=== PATIENT | female | born 2000 | race Caucasian/White ===

== ENCOUNTER → 2019-09-16 | Outpatient (CLI) | payer BC, OTHER ==
[~2019-09-16] MED LIST: BIRTH CONTROL; CEPH-507 PO; DESO1TAB72; ONDA4TAB11
--- NOTE | 2019-09-16 16:44 | Diagnostic Imaging Report ---
INDICATION: Assessment during normal . TECHNIQUE: Multiple real-time grayscale images were obtained over the gravid uterus. COMPARISON: None FINDINGS: A single viable intrauterine is currently in a breech presentation. Placenta is along the posterior aspect and without evidence for previa. There is a normal amount of amniotic fluid. Cervical length 3.6 cm. The ovaries are not able to be visualized likely owing to the advanced gestational age. Biometrical measurements are as follows: Biparietal 4.49 cm, age 19 weeks 5 days. Head circumference 17 cm, age 19 weeks 5 days. Abdominal circumference 13.57 cm, age 19 weeks 1 days. Femur length 2.81 cm, age 18 weeks 5 days. Sonographic estimate age: 19 weeks 3 days. Sonographic estimated date of delivery: 02/07/2020. Estimated Weight: 265 gm (+/- 39 gm). LMP percentile: 33%. heart rate: 161 beats per minute. number: 1 of 1. IMPRESSION: 1. Single viable intrauterine currently in a breech presentation. Sonographic estimated age 19 weeks 3 days for estimated date of delivery 02/07/2020. No abnormalities demonstrate at this time. Dictated by: Dictated on workstation # [id number]
== END ==
LOC: RAD 15:04
PROVIDERS: ATTEND Nurse Practitioner Women's Health
DX: Z34.92 Encounter for supervision of normal pregnancy, unspecified, second trimester (principal); Z3A.19 19 weeks gestation of pregnancy
CPT/HCPCS: 76805

== ENCOUNTER → 2019-12-17 | Outpatient (CLI) | payer OTHER ==
[~2019-12-17] MED LIST changes: -DESO1TAB72; +DESO1TAB89
--- NOTE | 2019-12-17 16:31 | Diagnostic Imaging Report ---
INDICATION: Evaluate growth. TECHNIQUE: Multiple real-time grayscale images were obtained over the gravid uterus. COMPARISON: 09/16/2019. FINDINGS: There is a single live fetus in a cephalic presentation. heart rate was recorded at 156 bpm. Placenta is posterior. Amniotic fluid index is 9.8 cm. Biophysical profile was also performed. Biophysical profile score is normal at 8 out of 8. Biometrical measurements are as follows: Biparietal 8.17 cm, age 32 weeks 6 days. Head circumference 28.95 cm, age 32 weeks 0 days. Abdominal circumference 27.84 cm, age 32 weeks 0 days. Femur length 5.90 cm, age 30 weeks 6 days. Sonographic estimate age: 32 weeks 0 days. Sonographic estimated date of delivery: 02/11/2020. Estimated Weight: 1806 gm (+/- 264 gm). LMP percentile: 21%. heart rate: 156 beats per minute. number: 1 of 1. IMPRESSION: 1. Single live fetus 32 weeks gestational age showing normal interval growth when compared with prior exam. 2. Normal biophysical profile score of 8 out of 8. Dictated by: Dictated on workstation # [id number]
== END ==
LOC: RAD 15:21
PROVIDERS: ATTEND Obstetrics & Gynecology
DX: O26.843 Uterine size-date discrepancy, third trimester (principal); Z3A.32 32 weeks gestation of pregnancy
CPT/HCPCS: 76805; 76819

== ENCOUNTER 2020-02-14 03:14 | Inpatient (IN) | payer OTHER ==
[2020-02-14] VITALS (36 sets, daily range): BP systolic 113–145; BP diastolic 58–90
[~2020-02-14] VITALS: Ht 160 cm; Wt 83.5 kg
--- NOTE | 2020-02-14 08:10 | NUR ---
EDSON PENNINGTON presented to unit via ambulation, accompanied by s/o , for scheduled IOL. Pt. weighed, gowned, voided, and to bed. EFHM and TOCO applied, VS taken. Pt. oriented to bed controls, call light, TV, heat, and A/C controls.
--- OUTSIDE RECORDS SUMMARY | 2020-02-14 08:16 | XMS REPORT ---
Author Author [employer] [facility] [place] [employer]. [facility] Address [address] [address] Care Team Providers Care Senior Facilities Manager Name Role Phone GELY YATES Unavailable MEENAKSHI MOE APRN Unavailable Unavailable NIMA WAY, PAULINE Curran Unavailable Unavailable ROSI MUÑOZ APRN Unavailable Unavailable ALEJO GARCIAS DO Unavailable Unavailable Unavailable Unavailable Allergies The data below is from unstructured sourcesNo known allergies. Medications No Information Problems Problem Normalized Date Last Normalized Normalized Provider Fa cility Classification Problem(s) Recorded Problem Problem Sta tus Duration Residual 19 weeks Episodic Active ROSI MUÑOZ [facility] Via codes; gestation of , YAN [facility] unclassified Hospital - (2 sources.) [place] ([id number]) Residual 32 weeks 02-13-2020 - Episodic Active ALEJO GARCIAS [facility] Via codes; gestation of DO Silva unclassified Hospital - (8 sources.) [place] ([id number]) Other Encounter for Episodic Active ROSI MUÑOZ [facility] Via and supervision of YAN delivery normal Hospital - including , [place] normal (2 unspecified, ([id number]) sources.) second trimester Fever of Fever, 02-13-2020 - Episodic Active MEENAKSHI MOE [facility] Via unknown origin unspecified YAN [facility] (4 sources.) Hospital - [place] ([id number]) Fluid and Hypokalemia 02-13-2020 - Episodic Active PAULINE [facility] Via electrolyte Shira HERRING disorders (4 Hospital - sources.) [place] ([id number]) Viral Infectious 02-13-2020 - Episodic Active PAULINE [facility] Via infection (4 mononucleosis, Shira HERRING sources.) unspecified [facility] - without [place] complication ([id number]) Other liver Nonspecific 02-13-2020 - Episodic Active PAULINE [facility] Via diseases (4 elevation of Shira HERRING sources.) levels of [facility] - [facility] and lactic (17157) acid dehydrogenase [LDH] Other Uterine 02-13-2020 - Episodic Active ALEJO GARCIAS [facility] Via complications size-date DO Shira of discrepancy, Hospital - (8 sources.) third [place] trimester ([id number]) Procedures The data below is from unstructured sourcesNo known history of procedures. Immunizations The data below is from unstructured sourcesNo immunization records. Results No Information Vital Signs The data below is from unstructured sources Vital Response Date/Time Temperature (Fahrenheit) 97.8 degree s F (97.6 - 99.5) 05/03/2016 3:47pm Temperature (Calculated Celsius) 36. 11505 degrees C (36.4 - 37.5) 05/03/2016 3:47pm Temperature Source Tympanic 05/03/2016 3:47pm Pulse Rate (Adolescent 12-19yrs) 86 bpm (56 - 106) 05/03/2016 3:47pm Respiratory Rate (Adolescent 12-19yrs) 18 bpm (15 - 20) 05/03/2016 3:47pm Blood Pressure / Blood Pressure Systolic (Adolescent 12-19yrs) 116 mm Hg (115 - 120) 05/03/2016 3:47pm Pain Numeric Pain Scale 7 6:34pm Height (Feet) 5 feet 3:47pm Height (Inches) 5 inches 05/03/2016 3:47pm Height (Calculated Centimeters) 165. 759285 cm 05/03/2016 3:47pm Weight (Pounds) 128 pounds 05/03/2016 3:47pm Weight (Calculated Kilograms) 58.059 824 kilograms 05/03/2016 3:47pm Calculated BMI 21.30 3:47pm Interventions No Information Plan of Treatment The data below is from unstructured sources Discharge Date 05/03/16 6:44pm Disposition 01 HOME, SELF-CARE Condition at Discharge Improved Instructions/Education Provided Safe Sex (ED) Mononucleosis (ED) Urinary Tract Infection in Women (ED) Forms Provided School/Childcare Rele ase Prescriptions See Medication Section Referrals GELY YATES MD - Primary Care Physician Additional Instructions/Education Fo llow-up with your primary care provider later this week. Review urine culture to ensure your antibiotic treatment is appropriate. Avoid any activity that can cause abdominal trauma. Stay out of school if you have temperature greater than 100. Follow-up with your primary care demarco polo or women's health provider for the final vaginal culture results in about 4 or 5 days. You may take ibuprofen up to 600 mg every 6 hours as needed for pain. Avoid Tylenol (acetaminophen) products until cleared by your doctor. Complete the entire course of your antibiotics as prescribed. Nothing vaginally including intercourse and tampons until cleared by your physician. All discharge instructions reviewed with patient and/or family. Voiced understanding. Goals No Information Social History No Information Functional Status The data below is from unstructured sourcesNo functional status results. Mental Status No Information Encounters Encounter Normalized Encounter Encounter Diagnosis Care Provi josep Organization Date Type 05-03-2016 Emergency department no information PAULINE MATUTE [facility] Via Shira - patient visit (no phone) [facility] 05-03-2016 (no phone) 12-17-2019 Patient encounter no information ALEJO GARCIAS DO ( no [facility] Via Shira procedure phone) [facility] (no phone) 09-16-2019 Patient encounter no information ROSI MANCINI [facility] Via Shira procedure (no phone) [facility] (no phone) 05-02-2016 Patient encounter no information MEENAKSHI MOE APRN (no [facility] Via Shira procedure phone) [facility] (no phone) Medical Equipment No Information Payers No Information Discharge Instructions No hospital discharge instructions. Additional Source Comments This clinical document has been generated using [employer] software that has been certified by the Office of the National Coordinator for Health Information Technology (ONC 15.99.04.3023.[id number].[id number]) and the National Committee for Deaf Teacher (NCQA, as an eMeasure certified technology). FOR RECORDS PERTAINING TO PATIENTS WHO ARE OR HAVE BEEN ENROLLED IN A CHEMICAL D EPENDENCY/SUBSTANCE ABUSE PROGRAM, SOME INFORMATION MAY BE OMITTED. This clinica l summary was aggregated from multiple sources. Caution should be exercised in using it in the provision of clinical care. This summary normalizes information from multiple sources, and as a consequence, information in this document may ma terially change the coding, format and clinical context of patient data. In francine tion, data may be omitted in some cases. CLINICAL DECISIONS SHOULD BE BASED ON T HE PRIMARY CLINICAL RECORDS. [facility]. provides no warranty or guara ntee of the accuracy or completeness of information in this document.The followi ng information is based on time limited clinical information
--- OUTSIDE RECORDS SUMMARY | 2020-02-14 08:16 | XMS REPORT | Continuity of Care Document ---
Author Organization Unknown Address Unknown Phone Unavailable Allergies Active Description Code Type Severity Reaction Onset Reported/Identified Relationship to Patient Clinical Status Yes No Known Drug Allergies [id number] Drug Allergy Unknown N/A 05/03/2016 Medications There is no data. Problems Date Dx Coded Attending Type Code Diagnosis Diagnosed By 05/03/[address], PAULINE T Ot B27.90 INFECTIOUS MONONUCLEOSIS, UNSPECIFIED WI 05/03/[address], PAULINE T Ot E87.6 HYPOKALEMIA 05/03/[address], PAULINE T Ot N39.0 URINARY TRACT INFECTION, SITE NOT SPECIF 05/03/[address], PAULINE T Ot R10.11 RIGHT UPPER QUADRANT PAIN 05/03/[address], PAULINE T Ot R74.0 NONSPEC ELEV OF LEVELS OF TRANSAMNS LA 05/24/2016 MEENAKSHI MOE BEADING MACHINE OPERATOR Ot R10.31 RIGHT LOWER QUADRANT PAIN 05/24/2016 MEENAKSHI MOE BEADING MACHINE OPERATOR Ot R50 .9 FEVER, UNSPECIFIED 09/11/2019 MUKUND MOEI L BEADING MACHINE OPERATOR Ot R10.31 RIGHT LOWER QUADRANT PAIN 09/11/2019 MUKUND MOEI L BEADING MACHINE OPERATOR Ot R50 .9 FEVER, UNSPECIFIED 09/16/2019 MUKUND MOEI Amina BEADING MACHINE OPERATOR Ot R10.31 RIGHT LOWER QUADRANT PAIN 09/16/2019 MUKUND MOEI L BEADING MACHINE OPERATOR Ot R50 .9 FEVER, UNSPECIFIED 09/18/2019 ROSI MUÑOZ BEADING MACHINE OPERATOR Ot Z34.92 ENCNTR FOR SUPRVSN OF NORMAL PREG, UNSP, 09/18/2019 ROSI MUÑOZ BEADING MACHINE OPERATOR Ot Z3A.19 19 WEEKS GESTATION OF 12/18/2019 MEENAKSHI MOE BEADING MACHINE OPERATOR Ot R10.31 RIGHT LOWER QUADRANT PAIN 12/18/2019 MEENAKSHI MOE BEADING MACHINE OPERATOR Ot R50 .9 FEVER, UNSPECIFIED 12/18/2019 ROSI MUÑOZ BEADING MACHINE OPERATOR Ot Z34.92 ENCNTR FOR SUPRVSN OF NORMAL PREG, UNSP, 12/18/2019 ROSI MUÑOZ BEADING MACHINE OPERATOR Ot Z3A.19 19 WEEKS GESTATION OF 12/18/2019 GARCIAS DO, ALEJO C Ot O26.8 43 UTERINE SIZE-DATE DISCREPANCY, THIRD TRI 12/18/2019 GARCIAS DO, ALEJO C Ot Z3A.3 2 32 WEEKS GESTATION OF 12/24/2019 GARCIAS DO, ALEJO C Ot O26.8 43 UTERINE SIZE-DATE DISCREPANCY, THIRD TRI 12/24/2019 GARCIAS DO, ALEJO C Ot Z3A.3 2 32 WEEKS GESTATION OF 12/24/2019 GARCIAS DO, ALEJO C Ot O26.8 43 UTERINE SIZE-DATE DISCREPANCY, THIRD TRI 12/24/2019 GARCIAS DO, ALEJO C Ot Z3A.3 2 32 WEEKS GESTATION OF 12/24/2019 GARCIAS DO, ALEJO C Ot O26.8 43 UTERINE SIZE-DATE DISCREPANCY, THIRD TRI 12/24/2019 GARCIAS DO, ALEJO C Ot Z3A.3 2 32 WEEKS GESTATION OF 12/24/2019 GARCIAS DO, ALEJO C Ot O26.8 43 UTERINE SIZE-DATE DISCREPANCY, THIRD TRI 12/24/2019 GARCIAS DO, ALEJO C Ot Z3A.3 2 32 WEEKS GESTATION OF 01/01/2020 GARCIAS DO, ALEJO C Ot O26.8 43 UTERINE SIZE-DATE DISCREPANCY, THIRD TRI 01/01/2020 GARCIAS DO, ALEJO C Ot Z3A.3 2 32 WEEKS GESTATION OF Procedures There is no data. Results Test Result Range Complete blood count (CBC) with automate d white blood cell (WBC) differential - 05/02/16 17:10 Blood leukocytes automated count (number/volume) 8.0 10*3/uL 4.3-11.0 Blood erythrocytes automated count (number/volume) 3.92 10*6/uL 4.35-5.85 Venous blood hemoglobin measurement (mass/volume) 11.4 g/dL 11.5-16.0 Blood hematocrit (volume fraction) 34 % 35-52 Automated erythrocyte mean corpuscular volume 86 [ foz_us] 80-99 Automated erythrocyte mean corpuscular h emoglobin (mass per erythrocyte) 29 pg 25-34 Automated erythrocyte mean corpuscular h emoglobin concentration measurement (mass/volume) 34 g/dL 32-36 Automated erythrocyte distribution width ratio 13. 1 % 10.0- 14.5 Automated blood platelet count (count/volume) 190 10*3/uL 130-400 Automated blood platelet mean volume measurement 11.3 [foz_us] 7.4-10.4 Automated blood neutrophils/100 leukocytes 16 % 42-75 Automated blood lymphocytes/100 leukocytes 66 % 12-44 Blood monocytes/100 leukocytes 14 % 0-12 Automated blood eosinophils/100 leukocytes 0 % 0-10 Automated blood basophils/100 leukocytes 4 % 0-10 Blood neutrophils automated count (number/volume) 1.3 10*3 1.8-7.8 Blood lymphocytes automated count (number/volume) 5.2 10*3 1.0-4.0 Blood monocytes automated count (number/volume) 1. 1 10*3 0.0-1.0 Automated eosinophil count 0.0 10*3/uL 0 .0-0.3 Automated blood basophil count (count/volume) 0.3 10*3/uL 0.0-0.1 Comprehensive metabolic panel - 05/02/16 17:10 Serum or plasma sodium measurement (moles/volume) 139 mmol/L 135-145 Serum or plasma potassium measurement (moles/volume) 3.6 mmol/L 3.6-5.0 Serum or plasma chloride measurement (moles/volume) 102 mmol/L 98-107 Carbon dioxide 27 mmol/L 21-32 Serum or plasma anion gap determination (moles/volume) 10 mmol/L 5-14 Serum or plasma urea nitrogen measurement (mass/volume ) 9 mg/dL 7-18 Serum or plasma creatinine measurement (mass/volume) 0.71 mg/dL 0.60-1.30 Serum or plasma urea nitrogen/creatinine mass ratio 13 NRG Serum or plasma glucose measurement (mass/volume) 93 mg/dL 70-105 Serum or plasma calcium measurement (mass/volume) 9.1 mg/dL 8.5-10.1 Serum or plasma total bilirubin measurement (mass/volu me) 0.9 mg/dL 0.1-1.0 Serum or plasma alkaline phosphatase diana surement (enzymatic activity/volume) 218 U/L 60-350 Serum or plasma aspartate aminotransfera se measurement (enzymatic activity/volume) 144 U/L 5-34 Serum or plasma alanine aminotransferase measurement (enzymatic activity/volume) 165 U/L 0-55 Serum or plasma protein measurement (mass/volume) 7.1 g/dL 6.4-8.2 Serum or plasma albumin measurement (mass/volume) 3.8 g/dL 3.2-4.5 Serum or plasma C reactive protein measu rement (mass/volume) - 05/02/16 17:10 Serum or plasma C reactive protein measurement (mass/v olume) 2.19 mg/dL 0.00-0.50 Blood manual differential performed dete ction - 05/02/16 17:10 Blood monocytes/100 leukocytes 0 % NRG Manual blood segmented neutrophils/100 leukocytes 23 % NRG Blood band neutrophils/100 leukocytes 3 % NRG Manual blood lymphocytes/100 leukocytes 66 % NRG Manual eosinophils/100 leukocytes in nose 0 % NRG Manual blood basophils/100 leukocytes 0 % NRG Blood lymphocytes variant/100 leukocytes 8 % NRG Blood erythrocyte morphology finding identification NORMAL NRG Serum heterophile antibody titer - 05/02 17:10 Serum heterophile antibody titer NEGATIVE NEGATIVE Complete urinalysis with reflex to cultu re - 05/03/16 15:55 Urine color determination YELLOW NRG Urine clarity determination SLIGHTLY CLOUDY NRG Urine pH measurement by test strip 6 5-9 Specific gravity of urine by test strip 1.020 1.016-1.022 Urine protein assay by test strip, semi-quantitative 2+ NEGATIVE Urine glucose detection by automated test strip NE GATIVE NEGATIVE Erythrocytes detection in urine sediment by light micr oscopy NEGATIVE NEGATIVE Urine ketones detection by automated test strip 4+ NEGATIVE Urine nitrite detection by test strip NEGATIVE NEGATIVE Urine total bilirubin detection by test strip 1+ NEGATIVE Urine urobilinogen measurement by automated test strip (mass/volume) 8 mg/dL NORMAL Urine leukocyte esterase detection by dipstick 1+ NEGATIVE Automated urine sediment erythrocyte cou nt by microscopy (number/high power field) NONE NRG Automated urine sediment leukocyte count by microscopy (number/high power field) [HPF] NRG Bacteria detection in urine sediment by light microsco py FEW NRG Squamous epithelial cells detection in u rine sediment by light microscopy 5-10 NRG Crystals detection in urine sediment by light microsco py NONE NRG Casts detection in urine sediment by light microscopy NONE NRG Mucus detection in urine sediment by light microscopy SMALL NRG Complete urinalysis with reflex to culture YES NRG Bacterial urine culture - 05/03/16 15:55 URINE CULTURE RESULTS <10,000/ML NRG Complete blood count (CBC) with automate d white blood cell (WBC) differential - 05/03/16 16:53 Blood leukocytes automated count (number/volume) 5.8 10*3/uL 4.3-11.0 Blood erythrocytes automated count (number/volume) 4.17 10*6/uL 4.35-5.85 Venous blood hemoglobin measurement (mass/volume) 12.1 g/dL 11.5-16.0 Blood hematocrit (volume fraction) 36 % 35-52 Automated erythrocyte mean corpuscular volume 85 [ foz_us] 80-99 Automated erythrocyte mean corpuscular h emoglobin (mass per erythrocyte) 29 pg 25-34 Automated erythrocyte mean corpuscular h emoglobin concentration measurement (mass/volume) 34 g/dL 32-36 Automated erythrocyte distribution width ratio 13. 4 % 10.0- 14.5 Automated blood platelet count (count/volume) 196 10*3/uL 130-400 Automated blood platelet mean volume measurement 11.3 [foz_us] 7.4-10.4 Automated blood neutrophils/100 leukocytes 13 % 42-75 Automated blood lymphocytes/100 leukocytes 68 % 12-44 Blood monocytes/100 leukocytes 14 % 0-12 Automated blood eosinophils/100 leukocytes 1 % 0-10 Automated blood basophils/100 leukocytes 4 % 0-10 Blood neutrophils automated count (number/volume) 0.8 10*3 1.8-7.8 Blood lymphocytes automated count (number/volume) 3.9 10*3 1.0-4.0 Blood monocytes automated count (number/volume) 0. 8 10*3 0.0-1.0 Automated eosinophil count 0.0 10*3/uL 0 .0-0.3 Automated blood basophil count (count/volume) 0.2 10*3/uL 0.0-0.1 Serum heterophile antibody titer - 05/03 16:53 Serum heterophile antibody titer POSITIVE NEGATIVE Serum or plasma choriogonadotropin (preg bola test) detection - 05/03/16 16:53 Serum or plasma choriogonadotropin ( test) de tection NEGATIVE NEGATIVE Comprehensive metabolic panel - 05/03/16 16:53 Serum or plasma sodium measurement (moles/volume) 137 mmol/L 135-145 Serum or plasma potassium measurement (moles/volume) 3.6 mmol/L 3.6-5.0 Serum or plasma chloride measurement (moles/volume) 101 mmol/L 98-107 Carbon dioxide 23 mmol/L 21-32 Serum or plasma anion gap determination (moles/volume) 13 mmol/L 5-14 Serum or plasma urea nitrogen measurement (mass/volume ) 10 mg/dL 7-18 Serum or plasma creatinine measurement (mass/volume) 0.70 mg/dL 0.60-1.30 Serum or plasma urea nitrogen/creatinine mass ratio 14 NRG Serum or plasma glucose measurement (mass/volume) 74 mg/dL 70-105 Serum or plasma calcium measurement (mass/volume) 9.2 mg/dL 8.5-10.1 Serum or plasma total bilirubin measurement (mass/volu me) 1.0 mg/dL 0.1-1.0 Serum or plasma alkaline phosphatase diana surement (enzymatic activity/volume) 222 U/L 60-350 Serum or plasma aspartate aminotransfera se measurement (enzymatic activity/volume) 161 U/L 5-34 Serum or plasma alanine aminotransferase measurement (enzymatic activity/volume) 199 U/L 0-55 Serum or plasma protein measurement (mass/volume) 7.5 g/dL 6.4-8.2 Serum or plasma albumin measurement (mass/volume) 4.0 g/dL 3.2-4.5 Serum or plasma C reactive protein measu rement (mass/volume) - 05/03/16 16:53 Serum or plasma C reactive protein measurement (mass/v olume) 1.58 mg/dL 0.00-0.50 Blood manual differential performed dete ction - 05/03/16 16:53 Blood monocytes/100 leukocytes 0 % NRG Manual blood segmented neutrophils/100 leukocytes 24 % NRG Blood band neutrophils/100 leukocytes 6 % NRG Manual blood lymphocytes/100 leukocytes 58 % NRG Manual eosinophils/100 leukocytes in nose 1 % NRG Manual blood basophils/100 leukocytes 0 % NRG Blood lymphocytes variant/100 leukocytes 11 % NRG Blood erythrocyte morphology finding identification NORMAL NRG Bacteria identification in genital speci men by aerobe culture - 05/03/16 17:35 Bacteria identification in genital specimen by aerobe culture NORMAL NRG Microscopic examination by ELIZABETH preparati on - 05/03/16 17:35 Microscopic examination by ELIZABETH preparation TNP NRG Microscopic examination by wet preparati on - 05/03/16 17:35 WET PREP RESULTS 05/03 18:17 BY P MAGDA NRG Neisseria gonorrhoeae DNA detection by p robe and signal amplification method - 05/03/16 17:35 Gonorrhea amp DNA-urine Negative Negati ve Chlamydia trachomatis DNA detection by p robe and signal amplification method - 05/03/16 17:35 Chlamydia trachomatis DNA detection by p robe and target amplification method Negative Negative Encounters ACCT No. Visit Date/Time Discharge Status Pt. Type Provider Facility Loc./Unit Complaint [id number] 12/17/2019 15:21:00 23:59:59 CLS Outpatient ALEJO GARCIAS DO [facility] RAD FUNDAL HEIGHTS LOW IN T HIRD TRIMESTER [id number] 09/16/2019 15:04:00 23:59:59 CLS Outpatient ROSI MUÑOZ APRN [facility] RAD [id number] 05/03/2016 15:39:00 016 18:44:[address]IMA [address], PAULINE Curran [facility] ER STOMACH PAIN [id number] 05/02/2016 17:01:00 23:59:59 CLS Outpatient MEENAKSHI MOE APRN [facility] RAD RLQ PAIN,FEVER/CHILLS
--- NOTE | 2020-02-14 08:25 | NUR ---
#20g IV to Rt.wrist x1 attempt by this RN. site patent, secured with opsite. admission labs collected from site prior to IVF's infusing. see eMar for further.
--- NOTE | 2020-02-14 08:32 | NUR ---
here. monitor tracing reviewed. admission orders received. POC reviewed with pt.
[2020-02-14] MEDS ORDERED: D5 LR IV SOLUTION 1,000 ML IV ONE (08:36)
[2020-02-14] MEDS ORDERED: D5 LR IV SOLUTION 1,000 ML IV SCH (08:58)
[2020-02-14] MEDS ORDERED: MINERAL OIL CONCENTRATE 99.9% 15 ML UDC TOP SCH (09:00)
[2020-02-14 09:05] LABS: BILIRUBIN,URINE NEGATIVE (NEGATIVE); CLARITY,URINE CLEAR; COLOR,URINE YELLOW; GLUCOSE, URINE (UA) NEGATIVE (NEGATIVE); KETONES,URINE NEGATIVE (NEGATIVE); LEUKOCYTE ESTERASE ,URINE NEGATIVE (NEGATIVE); NITRITE,URINE NEGATIVE (NEGATIVE); PROTEIN,URINE TRACE (NEGATIVE)
[2020-02-14 09:05] LABS: BASOPHILS % (AUTO) 0 % (0-10); EOSINOPHILS % (AUTO) 1 % (0-10); HEMATOCRIT 36 % (35-52); LYMPHOCYTES # (AUTO) 1.7 X 10^3 (1.0-4.0); LYMPHOCYTES % (AUTO) 22 % (12-44); MEAN CORPUSCULAR HEMOGLOBIN 30 PG (25-34); MEAN CORPUSCULAR HGB CONC 33 G/DL (32-36); MEAN CORPUSCULAR VOLUME 90 FL (80-99); MEAN PLATELET VOLUME 12.6 FL (7.4-10.4); MONOCYTES # (AUTO) 0.5 X 10^3 (0.0-1.0); MONOCYTES % (AUTO) 6 % (0-12); NEUTROPHILS # (AUTO) 5.6 X 10^3 (1.8-7.8); NEUTROPHILS % (AUTO) 71 % (42-75); PLATELET COUNT 236 10^3/uL (130-400); WHITE BLOOD COUNT 7.8 10^3/uL (4.3-11.0)
[2020-02-14 09:21] LABS: BACTERIA,URINE FEW /HPF
--- NOTE | 2020-02-14 09:45 | NUR ---
anesthesia notified of pt's request for epidural placement
[2020-02-14] MEDS ORDERED: fentaNYL 2 mcg/ml BUPIVA 0.125 100 ML ONE (09:51)
[2020-02-14] MEDS ORDERED: LACTATED RINGERS 1,000 ML IV SCH (10:20)
[2020-02-14] MEDS ORDERED: diphenhydrAMINE 50 MG/ML INJ (BENADRYL) IV PRN (10:30)
[2020-02-14] MEDS ORDERED: EPIDURAL (fentaNYL 2 MCG/ML BUPIVA 0.125%)100 ML BAG EPI SCH (10:30)
[2020-02-14] MEDS ORDERED: ONDANSETRON 4 MG/2 ML (SDV) Z0FRAN IV PRN (10:30)
[2020-02-14] MEDS ORDERED: NALOXONE 0.4 MG/ML 1 ML (NARCAN) VIAL IV PRN ×2 (10:30)
[2020-02-14] MEDS ORDERED: METOCLOPRAMIDE INJ 10 MG/2 ML (REGLAN) IV PRN (10:30)
--- NOTE | 2020-02-14 10:50 | NUR ---
Mike Barry was given update on pt's status. reviewed SVE and monitor tracing. pitocin order received.
[2020-02-14] MEDS ORDERED: OXYTOCIN PRE-MIX DRIP 500 ML IV SCH ×2 (10:51→17:57)
[2020-02-14] MEDS ORDERED: CATHETER FLUSH 10 ML SYR IV SCH (14:00)
--- NOTE | 2020-02-14 16:40 | OB Labor & Delivery Record ---
Vag Delivery Note Vag Delivery Note Date of Delivery: 02/14/20 Preoperative Diagnosis: Angelica Cheatham is a 19 /Para 1/0 , Gestational Age 40 5/7 weeks, induction due to post dated Postoperative Diagnosis: Same Surgeon: ALEJO GARCIAS Anesthesia: epidural Delivery Type: vaginal Findings: [] Viablemale , apgars 8/9, weight [7#14 ounces Lacerations: 2nd degree Intact placenta with 3 vessel cord. Nuchal cord delivered through, no body cord or shoulder dystocia Estimated Blood Loss: 300 ml Complications: None Condition: Stable Description of Procedure: The patient is a 19 year old female who presented at 40 5/7 weeks for induction of labor due to post dates. She was admitted and informed consent was obtained. Her labor course was remarkable for AROM, epidural and then augmentation with oxytocin. She progressed to complete dilatation and began to push. She was then set up for delivery. The infant's head was delivered atraumatically in the Samia position, nuchal cord x 1 delivered through. The shoulders and remainder of the 's body were then delivered without difficulty. Upon delivery, the head was held below the level of the perineum and the mouth and nares were bulb suctioned. The cord was doubly clamped and cut and the infant wa s handed off to the pediatric staff. An intact placenta with 3-vessel cord delivered via Jigar and there was found to be minimal bleeding.~ Vigorous fundal massage was performed and the fundus was found to be firm. IV oxytocin was given. Examination of the vagina and perineum revealed a [2nd degree laceration repaired in the usual fashion with 3-0 vicryl suture. Following the repair, sponge, instrument and needle counts were correct. Mom and baby were both in stable condition in the labor suite. Vitals - Labs Vital Signs - I&O Vital Signs Date Time Temp Pulse Resp B/P (MAP) Pulse Ox O2 Delivery O2 Flow Rate FiO2 02/14/20 14:30 73 18 119/77 (91) 99 Room Air 02/14/20 14:15 76 18 120/76 (91) 99 Room Air 02/14/20 14:00 80 18 115/76 (89) 99 Room Air 02/14/20 13:45 95 18 119/74 (89) 99 Room Air 02/14/20 13:30 87 18 99 Room Air 02/14/20 13:15 79 18 100 Room Air 02/14/20 13:00 63 18 123/71 (88) 99 Room Air 02/14/20 12:45 80 18 133/90 (104) 99 Room Air 02/14/20 12:30 80 18 133/90 (104) 99 Room Air 02/14/20 12:15 64 18 125/76 (92) 98 Room Air 02/14/20 12:00 71 18 118/81 (93) 99 Room Air 02/14/20 11:57 36.6 02/14/20 11:45 78 18 118/60 (79) 97 Room Air 02/14/20 11:30 78 18 118/60 (79) 97 Room Air 02/14/20 11:15 73 18 126/88 (101) 99 Room Air 02/14/20 11:00 76 18 115/77 (90) 99 Room Air 02/14/20 10:45 76 18 119/77 (91) 98 Room Air 02/14/20 10:30 76 18 120/76 (91) 99 Room Air 02/14/20 10:25 82 18 122/77 (92) 98 Room Air 02/14/20 10:20 88 18 127/79 (95) 99 Room Air 02/14/20 10:15 87 18 129/82 (98) 98 Room Air 02/14/20 10:10 90 18 129/84 (99) 98 Room Air 02/14/20 10:05 92 18 145/85 (105) 98 Room Air 02/14/20 10:00 87 18 129/83 (98) 98 Room Air 02/14/20 09:25 88 18 113/86 (95) Room Air 02/14/20 08:19 36.0 101 18 99 Room Air 02/14/20 08:19 36.0 101 18 117/78 (91) Room Air Labs Laboratory Tests 02/14/20 08:30: Urine Color YELLOW, Urine Clarity CLEAR, Urine pH 6.0, Urine Specific [place] >=1.030, Urine Protein TRACEH, Urine Glucose (UA) NEGATIVE, Urine Ketones NEGATIVE, Urine Nitrite NEGATIVE, Urine Bilirubin NEGATIVE, Urine Urobilinogen 0.2, Urine Leukocyte Esterase NEGATIVE, Urine RBC (Auto) NEGATIVE, Urine RBC NONE, Urine WBC 2-5, Urine Squamous Epithelial Cells 2-5, Urine Crystals NONE, Urine Bacteria FEWH, Urine Casts NONE, Urine Mucus SMALLH, Urine Culture I ndicated NO 02/14/20 08:32: White Blood Count 7.8, Red Blood Count 4.01L, Hemoglobin 12.0, Hematocrit 36, Mean Corpuscular Volume 90, Mean Corpuscular Hemoglobin 30, Mean Corpuscular Hemoglobin Concent 33, Red Cell Distribution Width 14.0, Platelet Count 236, Mean Platelet Volume 12.6H, Neutrophils (%) (Auto) 71, Lymphocytes (%) (Auto) 22, Monocytes (%) (Auto) 6, Eosinophils (%) (Auto) 1, Basophils (%) (Auto) 0, Neutrophils # (Auto) 5.6, Lymphocytes # (Auto) 1.7, Monocytes # (Auto) 0.5, Eosinophils # (Auto) 0.0, Basophils # (Auto) 0.0 ALEJO GARCIAS DO Feb 14, 2020 16:40
[2020-02-14] MEDS ORDERED: BENZOCAINE/MENTHOL (DERMOPLAST) 60 ML CAN TP PRN (18:00)
[2020-02-14] MEDS ORDERED: WITCH HAZEL(TUCKS) 40 EA JAR TOP PRN (18:00)
--- NOTE | 2020-02-14 18:52 | NUR ---
FFu/0. lt rubra noted, no clots expressed. omega-care offered. up with assist x1 to w/c
--- NOTE | 2020-02-14 18:55 | NUR ---
pt transferred to room 312 via w/c with this RN and s/o @ side. call light within reach. familiarized with room surroundings.
[2020-02-14] MEDS ORDERED: ACETAMINOPHEN 500 MG TAB (TYLENOL) ONE (18:58)
[2020-02-14] MEDS: ACETAMINOPHEN 500 MG TAB (TYLENOL) PO SCH (19:00)
[2020-02-14] MEDS: IBUPROFEN 600 MG (MOTRIN) TAB PO SCH ×2 (19:00→23:54)
--- NOTE | 2020-02-14 19:18 | NUR ---
report given to MARIETTA Burk.
[2020-02-14] MEDS: DOCUSATE SODIUM 100 MG (COLACE) CAP PO SCH (20:17)
--- NOTE | 2020-02-14 20:30 | NUR ---
assisted pt to wc to bathroom, to void, void noted, pericare demonstrated and discussed, clean gown on, vpad and mesh panties in place. pt to wc and taken into nsy to bowling with infant.
--- NOTE | 2020-02-14 21:10 | NUR ---
pt back to room via wc and back to bed. no needs at this time.
[2020-02-15 00:10] VITALS: BP 111/89
[2020-02-15 03:30] VITALS: BP 114/56
[2020-02-15] MEDS: ACETAMINOPHEN 500 MG TAB (TYLENOL) PO SCH ×3 (03:32→21:20)
[2020-02-15 04:30] LABS: BASOPHILS % (AUTO) 0 % (0-10); EOSINOPHILS % (AUTO) 0 % (0-10); HEMATOCRIT 27 % (35-52); HEMOGLOBIN 9.1 G/DL (11.5-16.0); LYMPHOCYTES # (AUTO) 1.9 X 10^3 (1.0-4.0); LYMPHOCYTES % (AUTO) 22 % (12-44); MEAN CORPUSCULAR HEMOGLOBIN 30 PG (25-34); MEAN CORPUSCULAR HGB CONC 34 G/DL (32-36); MEAN CORPUSCULAR VOLUME 91 FL (80-99); MONOCYTES # (AUTO) 0.6 X 10^3 (0.0-1.0); MONOCYTES % (AUTO) 6 % (0-12); NEUTROPHILS # (AUTO) 6.3 X 10^3 (1.8-7.8); NEUTROPHILS % (AUTO) 72 % (42-75); PLATELET COUNT 160 10^3/uL (130-400); RED CELL DISTRIBUTION WIDTH 13.6 % (10.0-14.5); WHITE BLOOD COUNT 8.7 10^3/uL (4.3-11.0)
[2020-02-15] MEDS: IBUPROFEN 600 MG (MOTRIN) TAB PO SCH ×4 (06:01→23:48)
--- NOTE | 2020-02-15 09:19 | Postpartum Progress Note ---
Note Note Day # 1 s/p Subjective: Patient is without complaints. Ambulating, voiding. Tolerating a regular diet without nausea or vomiting. Normal lochia. Pain is well controlled with oral pain medications. [] feeding. [] Objective: 02/15/20 02/15/20 00:10 03:30 Temp 36.4 36.1 Pulse 88 70 Resp 18 16 B/P (MAP) 111/89 (96) 114/56 (75) Pulse Ox 99 O2 Delivery Room Air Room Air Laboratory Tests Test 02/15/20 04:20 Range/Units White Blood Count 8.7 4.3-11.0 10^3/uL Red Blood Count 2.99 L 4.35-5.85 10^6/uL Hemoglobin 9.1 #L 11.5-16.0 G/DL Hematocrit 27 L 35-52 % Mean Corpuscular Volume 91 80-99 FL Mean Corpuscular Hemoglobin 30 25-34 PG Mean Corpuscular Hemoglobin Concent 34 32-36 G/DL Red Cell Distribution Width 13.6 10.0-14.5 % Platelet Count 160 130-400 10^3/uL Mean Platelet Volume 12.0 H 7.4-10.4 FL Neutrophils (%) (Auto) 72 42-75 % Lymphocytes (%) (Auto) 22 12-44 % Monocytes (%) (Auto) 6 0-12 % Eosinophils (%) (Auto) 0 0-10 % Basophils (%) (Auto) 0 0-10 % Neutrophils # (Auto) 6.3 1.8-7.8 X 10^3 Lymphocytes # (Auto) 1.9 1.0-4.0 X 10^3 Monocytes # (Auto) 0.6 0.0-1.0 X 10^3 Eosinophils # (Auto) 0.0 0.0-0.3 10^3/uL Basophils # (Auto) 0.0 0.0-0.1 10^3/uL Physical Exam: General - Alert and oriented, no apparent distress Abdomen - Soft, appropriately tender to palpation, non-distended, fundus firm at umbilicus Extremities - no edema, negative Morales's bilaterally Assessment: 1. post- day # 1, status post spontaneous vaginal delivery. Recovering well, hemodynamically stable Plan: Routine care. Encourage breast feeding. Encourage ambulation. Ferrous sulfate supplementation. Plan for discharge tomorrow Vitals - Labs Vital Signs - I&O Vital Signs Date Time Temp Pulse Resp B/P (MAP) Pulse Ox O2 Delivery O2 Flow Rate FiO2 02/15/20 03:30 36.1 70 16 114/56 (75) 99 Room Air 02/15/20 00:10 36.4 88 18 111/89 (96) Room Air 02/14/20 20:05 37.1 70 18 131/78 (95) 98 Room Air 02/14/20 17:45 68 18 125/58 (80) Room Air 02/14/20 17:30 74 18 136/71 (92) Room Air 02/14/20 17:15 68 18 136/73 (94) Room Air 02/14/20 17:00 65 18 126/76 (93) Room Air 02/14/20 16:45 67 18 125/73 (90) Room Air 02/14/20 16:15 36.6 74 18 123/73 (90) Room Air 02/14/20 16:00 72 18 131/64 (86) Room Air 02/14/20 15:45 68 18 123/65 (84) Room Air 02/14/20 15:30 75 18 134/80 (98) Room Air 02/14/20 15:26 36.6 02/14/20 15:15 85 18 123/77 (92) 98 Room Air 02/14/20 15:00 90 18 121/79 (93) 99 Room Air 02/14/20 14:45 87 18 129/84 (99) 99 Room Air 02/14/20 14:30 73 18 119/77 (91) 99 Room Air 02/14/20 14:15 76 18 120/76 (91) 99 Room Air 02/14/20 14:00 80 18 115/76 (89) 99 Room Air 02/14/20 13:45 95 18 119/74 (89) 99 Room Air 02/14/20 13:30 87 18 99 Room Air 02/14/20 13:15 79 18 100 Room Air 02/14/20 13:00 63 18 123/71 (88) 99 Room Air 02/14/20 12:45 80 18 133/90 (104) 99 Room Air 02/14/20 12:30 80 18 133/90 (104) 99 Room Air 02/14/20 12:15 64 18 125/76 (92) 98 Room Air 02/14/20 12:00 71 18 118/81 (93) 99 Room Air 02/14/20 11:57 36.6 02/14/20 11:45 78 18 118/60 (79) 97 Room Air 02/14/20 11:30 78 18 118/60 (79) 97 Room Air 02/14/20 11:15 73 18 126/88 (101) 99 Room Air 02/14/20 11:00 76 18 115/77 (90) 99 Room Air 02/14/20 10:45 76 18 119/77 (91) 98 Room Air 02/14/20 10:30 76 18 120/76 (91) 99 Room Air 02/14/20 10:25 82 18 122/77 (92) 98 Room Air 02/14/20 10:20 88 18 127/79 (95) 99 Room Air 02/14/20 10:15 87 18 129/82 (98) 98 Room Air 02/14/20 10:10 90 18 129/84 (99) 98 Room Air 02/14/20 10:05 92 18 145/85 (105) 98 Room Air 02/14/20 10:00 87 18 129/83 (98) 98 Room Air 02/14/20 09:25 88 18 113/86 (95) Room Air Labs Laboratory Tests 02/15/20 04:20: White Blood Count 8.7, Red Blood Count 2.99L, Hemoglobin 9.1#L, Hematocrit 27L, Mean Corpuscular Volume 91, Mean Corpuscular Hemoglobin 30, Mean Corpuscular Hemoglobin Concent 34, Red Cell Distribution Width 13.6, Platelet Count 160, Mean Platelet Volume 12.0H, Neutrophils (%) (Auto) 72, Lymphocytes (%) (Auto) 22, Monocytes (%) (Auto) 6, Eosinophils (%) (Auto) 0, Basophils (%) (Auto) 0, Neutrophils # (Auto) 6.3, Lymphocytes # (Auto) 1.9, Monocytes # (Auto) 0.6, Eosinophils # (Auto) 0.0, Basophils # (Auto) 0.0 ALEJO GARCIAS DO Feb 15, 2020 09:19
[2020-02-15 09:25] VITALS: BP 115/67
[2020-02-15] MEDS: DOCUSATE SODIUM 100 MG (COLACE) CAP PO SCH ×2 (09:25→21:20)
[2020-02-15] MEDS: PRENATAL VITAMIN 1 EA TAB PO SCH (09:25)
--- NOTE | 2020-02-15 09:25 | NUR ---
AM shift assessment completed and vital signs obtained, see interventions. Plan of care reviewed with patient and understanding verbalized. Scheduled PNV and Colace PO given at this time. Patient denies any current questions or concerns at this time.
--- NOTE | 2020-02-15 10:41 | Anesthesia-Regional Post-Op ---
Regional Patient Condition Mental Status: Alert, Oriented x3 Circulation: Same as Pre-Op Headache: Absent Sensation: Full Recovery Motor Block: Absent Post Op Complications Complications None Follow Up Care/Instructions Patient Instructions None needed. Anesthesia/Patient Condition Patient is doing well, no complaints, stable vital signs, no apparent adverse anesthesia problems. No complications reported per nursing. TOMAS CASTELLANOS CRNA Feb 15, 2020 10:41
[2020-02-15 12:55] VITALS: BP 125/84
[2020-02-15 17:41] VITALS: BP 123/79
[2020-02-15 23:52] VITALS: BP 121/76
--- NOTE | 2020-02-16 00:40 | NUR ---
Rn to room, pt tearful, infant to nsy while pt rests. Denies needs.
--- NOTE | 2020-02-16 04:00 | NUR ---
Pt sleeping in bed and aroused by RN to feed .
[2020-02-16] MEDS: IBUPROFEN 600 MG (MOTRIN) TAB PO SCH (05:44)
[2020-02-16] MEDS: ACETAMINOPHEN 500 MG TAB (TYLENOL) PO SCH (05:45)
[2020-02-16 05:50] VITALS: BP 136/80
[2020-02-16 07:00] VITALS: BP 115/76
[2020-02-16] MEDS: PRENATAL VITAMIN 1 EA TAB PO SCH (08:09)
[2020-02-16] MEDS: DOCUSATE SODIUM 100 MG (COLACE) CAP PO SCH (08:09)
[2020-02-16 08:50] VITALS: BP 115/76
--- NOTE | 2020-02-16 09:29 | Postpartum Progress Note ---
Note Note Day # 2 Subjective: Patient is without complaints. Ambulating, voiding. Tolerating a regular diet without nausea or vomiting. Normal lochia. Pain is well controlled with oral pain medications. Breast feeding/ pumping. Objective: 02/15/20 02/16/20 02/16/20 23:52 05:50 07:00 Temp 36.5 36.3 Pulse 73 71 Resp 16 16 B/P (MAP) 121/76 (91) 136/80 (98) O2 Delivery Room Air Room Air Room Air Physical Exam: General - Alert and oriented, no apparent distress Abdomen - Soft, appropriately tender to palpation, non-distended, fundus firm at umbilicus Extremities - no edema, negative Morales's bilaterally Assessment: 1. post- day # 2, status post spontaneous vaginal delivery. Recovering well, hemodynamically stable Plan: Routine care. Encourage breast feeding. Encourage ambulation. Ferrous sulfate supplementation. Plan for discharge today Vitals - Labs Vital Signs - I&O Vital Signs Date Time Temp Pulse Resp B/P (MAP) Pulse Ox O2 Delivery O2 Flow Rate FiO2 02/16/20 07:00 Room Air 02/16/20 05:50 36.3 71 16 136/80 (98) Room Air 02/15/20 23:52 36.5 73 16 121/76 (91) Room Air 02/15/20 17:41 36.4 109 18 123/79 (94) 97 Room Air 02/15/20 12:55 36.5 94 18 125/84 (98) 100 Room Air ALEJO GARCIAS DO Feb 16, 2020 09:29
[2020-02-16] MEDS ORDERED: FERR-84 PO (09:31)
[2020-02-16] MEDS ORDERED: IBUP-844 PO (09:31)
[2020-02-16] MEDS ORDERED: ACET-93 PO (09:31)
--- NOTE | 2020-02-16 09:35 | Discharge Inst-Women's Service ---
Discharge Inst-Women's Serv Depart Medication/Instructions New, Converted or Re-Newed RX: RX on Chart Final Diagnosis post date acute blood anemia 2nd degree laceration epidural Problems Reviewed?: Yes Consults/Follow Up Additional Follow Up: Yes Activity Activity: Activity as Tolerated Driving Instructions: You May Drive NO SMOKING: NO SMOKING Nothing Inside Vagina: No Douching, No [place], No Tampons Diet Discharge Diet: No Restrictions Symptoms to Report to : Bleeding Excessive, Pain Increased, Fever Over 101 Degrees F, Vaginal Bleeding Increase, Cramps in Feet or Legs, Vaginal Discharge Foul For Any Problems or Questions: Contact Your Physician ALEJO GARCIAS DO Feb 16, 2020 09:35
--- NOTE | 2020-02-16 10:35 | NUR ---
Going home instructions given to mom. Verbalized understanding although questioned why "no smoking" per Dr Mkceon's restrictions. I inquired - pt quit when she knew she was but has urges to start smoking. Cautioned about health of baby and mom - stated infants whom have 2nd hand smoking can develop health issues like asthma and SIDS besides known health risks to mom. I informed her of the [facility] smoking cessation phone line and encouraged her to discuss with physician about option of gum, patches and medications.
--- NOTE | 2020-02-16 13:10 | NUR ---
Discharged to home with baby in car seat, father of baby and Kenya Chadwick RN. Accompanied to exit.
== END 2020-02-16 13:10 | disposition home or self-care (01) | DRG 807 ==
LOC: LDRP 08:00
PROVIDERS: ADMIT Obstetrics & Gynecology; ATTEND Obstetrics & Gynecology
PROC: 10E0XZZ Delivery of Products of Conception, External Approach (ICD-10-PCS; principal; 2020-02-14)
PROC: 0KQM0ZZ Repair Perineum Muscle, Open Approach (ICD-10-PCS; 2020-02-14)
PROC: 10907ZC Drainage of Amniotic Fluid, Therapeutic from Products of Conception, Via Natural or Artificial Opening (ICD-10-PCS; 2020-02-14)
DX: O48.0 Post-term pregnancy (principal); Z37.0 Single live birth; O69.81X0 Labor and delivery complicated by cord around neck, without compression, not applicable or unspecified; O70.1 Second degree perineal laceration during delivery; Z3A.40 40 weeks gestation of pregnancy
CPT/HCPCS: 36415; 81000; 85025; 86850; 86900; 86901

== ENCOUNTER 2021-04-15 15:21 | Emergency (ER) | payer OTHER ==
[~2021-04-15] VITALS: Ht 160 cm; Wt 70.0 kg
[~2021-04-15 15:21] MED LIST changes: +ACET-93 PO; +FERR-84 PO; +IBUP-844 PO
[2021-04-15] MEDS ORDERED: ONDANSETRON 4 MG/2 ML (SDV) Z0FRAN IVP ONE (17:00)
[2021-04-15] MEDS ORDERED: LACTATED RINGERS 1,000 ML IV SCH (17:00)
[2021-04-15 17:13] LABS: BILIRUBIN,URINE 2+ (NEGATIVE); CLARITY,URINE SL CLOUDY; COLOR,URINE YELLOW; GLUCOSE, URINE (UA) NEGATIVE (NEGATIVE); KETONES,URINE 2+ (NEGATIVE); LEUKOCYTE ESTERASE ,URINE NEGATIVE (NEGATIVE); NITRITE,URINE NEGATIVE (NEGATIVE); PROTEIN,URINE 2+ (NEGATIVE)
[2021-04-15 17:25] LABS: BACTERIA,URINE FEW /HPF; RBC,URINE RARE /HPF
[2021-04-15 17:40] LABS: BASOPHILS % (AUTO) 0 % (0-10); EOSINOPHILS # (AUTO) 0.1 10^3/uL (0.0-0.3); EOSINOPHILS % (AUTO) 1 % (0-10); HEMATOCRIT 42 % (35-52); HEMOGLOBIN 13.8 g/dL (11.5-16.0); LYMPHOCYTES # (AUTO) 1.2 10^3/uL (1.0-4.0); LYMPHOCYTES % (AUTO) 25 % (12-44); MEAN CORPUSCULAR HEMOGLOBIN 30 pg (25-34); MEAN CORPUSCULAR HGB CONC 33 g/dL (32-36); MEAN CORPUSCULAR VOLUME 91 fL (80-99); MEAN PLATELET VOLUME 11.8 fL (9.0-12.2); MONOCYTES # (AUTO) 0.5 10^3/uL (0.0-1.0); MONOCYTES % (AUTO) 10 % (0-12); NEUTROPHILS # (AUTO) 2.9 10^3/uL (1.8-7.8); NEUTROPHILS % (AUTO) 63 % (42-75); PLATELET COUNT 244 10^3/uL (130-400); WHITE BLOOD COUNT 4.7 10^3/uL (4.3-11.0)
--- NOTE | 2021-04-15 17:43 | ED GI ---
General Chief Complaint: Abdominal/GI Problems Stated Complaint: N/V/D Nursing Triage Note: Pt here with n/v/d since Monday; vomited x 1 in the last 24 hours and had diarrhea TNTC in the last 24 hours per the patient. Source of Information: Patient Exam Limitations: No Limitations History of Present Illness Date Seen by Provider: Apr 15, 2021 Time Seen by Provider: 14:40 Initial Comments To ER with nausea vomiting diarrhea since Monday. She is only vomited once in the last 24 hours but has had diarrhea too many times to count. She only has abdominal pain when she is vomiting or having diarrhea otherwise does not have pain. No fevers or chills and no exposure to ill contacts, no one else has these symptoms. Timing/Duration: 1-2 Days Severity/Quality: Cramping Location: Generalized Abdomen Radiation: No Radiation Activities at Onset: None Associated Symptoms: Nausea/Vomiting Allergies and Home Medications Allergies Coded Allergies: No Known Drug Allergies (Unverified , 05/03/16) Home Medications Acetaminophen 500 Mg Tablet, 1,000 MG PO Q8HR Prescribed by: ALEJO GARCIAS on 02/16/20930 Ferrous Sulfate 325 Mg Tablet, 325 MG PO DAILY Prescribed by: ALEJO GARCIAS on 02/16/20930 Ibuprofen 600 Mg Tablet, 600 MG PO Q6HR Prescribed by: ALEJO GARCIAS on 02/16/20930 Patient Home Medication List Home Medication List Reviewed: Yes Review of Systems Review of Systems Constitutional: see HPI; No chills, No fever EENTM: No Symptoms Reported Respiratory: No Symptoms Reported Cardiovascular: No Symptoms Reported Gastrointestinal: See HPI, Abdominal Pain, Diarrhea, Nausea, Vomiting Genitourinary: No Symptoms Reported Musculoskeletal: no symptoms reported Skin: no symptoms reported Psychiatric/Neurological: No Symptoms Reported Endocrine: No Symptoms Reported Hematologic/Lymphatic: No Symptoms Reported Past Lfswkwd-Oqatcr-Hjenmn Hx Seasonal Allergies Seasonal Allergies: No Past Medical History Surgeries: No Respiratory: No Cardiac: No Neurological: No Genitourinary: No Gastrointestinal: No Musculoskeletal: No Endocrine: No HEENT: No Cancer: No Psychosocial: No Integumentary: No Family Medical History Diabetes mellitus (grandfather) FH: ovarian cancer (grandmother) Hypertension (father) No Family History of: [place] Cancer, Hypertension Physical Exam Vital Signs Vital Signs - First Documented 04/15/21 16:53 Temp 36.8 Pulse 88 Resp 18 B/P (MAP) 112/73 (86) Pulse Ox 97 O2 Delivery Room Air Capillary Refill : Less Than 3 Seconds Height/Weight/BMI Height: 5'5" Weight: 128lbs. oz. 58.685682sc; 27.00 BMI Method:Stated General Appearance: WD/WN, no apparent distress HEENT: PERRL/EOMI, normal ENT inspection Neck: non-tender, full range of motion Respiratory: no respiratory distress, no accessory muscle use Cardiovascular: regular rate, rhythm, no murmur Gastrointestinal: normal bowel sounds, non tender, soft Extremities: normal range of motion, non-tender Neurologic/Psychiatric: alert, normal mood/affect, oriented x 3 Skin: normal color, warm/dry Progress/Results/Core Measures Results/Orders Lab Results Laboratory Tests Test 04/15/21 15:51 04/15/21 17:06 04/15/21 17:30 Range/Units Influenza Type A (RT-PCR) Not Detected Not Detecte Influenza Type B (RT-PCR) Not Detected Not Detecte SARS-CoV-2 RNA (RT-PCR) Not Detected Not Detecte Urine Color YELLOW Urine Clarity SL CLOUDY Urine pH 6.0 5-9 Urine Specific [place] >=1.030 1.016-1.022 Urine Protein 2+ H NEGATIVE Urine Glucose (UA) NEGATIVE NEGATIVE Urine Ketones 2+ H NEGATIVE Urine Nitrite NEGATIVE NEGATIVE Urine Bilirubin 2+ H NEGATIVE Urine Urobilinogen 1.0 < = 1.0 MG/DL Urine Leukocyte Esterase NEGATIVE NEGATIVE Urine RBC (Auto) 1+ H NEGATIVE Urine RBC RARE /HPF Urine WBC 5-10 H /HPF Urine Squamous Epithelial Cells 5-10 /HPF Urine Crystals NONE /LPF Urine Bacteria FEW H /HPF Urine Casts NONE /LPF Urine Mucus MODERATE H /LPF Urine Culture Indicated YES White Blood Count 4.7 4.3-11.0 10^3/uL Red Blood Count 4.57 3.80-5.11 10^6/uL Hemoglobin 13.8 11.5-16.0 g/dL Hematocrit 42 35-52 % Mean Corpuscular Volume 91 80-99 fL Mean Corpuscular Hemoglobin 30 25-34 pg Mean Corpuscular Hemoglobin Concent 33 32-36 g/dL Red Cell Distribution Width 13.2 10.0-14.5 % Platelet Count 244 130-400 10^3/uL Mean Platelet Volume 11.8 9.0-12.2 fL Immature Granulocyte % (Auto) 0 % Neutrophils (%) (Auto) 63 42-75 % Lymphocytes (%) (Auto) 25 12-44 % Monocytes (%) (Auto) 10 0-12 % Eosinophils (%) (Auto) 1 0-10 % Basophils (%) (Auto) 0 0-10 % Neutrophils # (Auto) 2.9 1.8-7.8 10^3/uL Lymphocytes # (Auto) 1.2 1.0-4.0 10^3/uL Monocytes # (Auto) 0.5 0.0-1.0 10^3/uL Eosinophils # (Auto) 0.1 0.0-0.3 10^3/uL Basophils # (Auto) 0.0 0.0-0.1 10^3/uL Immature Granulocyte # (Auto) 0.0 0.0-0.1 10^3/uL Sodium Level 142 135-145 MMOL/L Potassium Level 3.3 L 3.6-5.0 MMOL/L Chloride Level 105 98-107 MMOL/L Carbon Dioxide Level 23 21-32 MMOL/L Anion Gap 14 5-14 MMOL/L Blood Urea Nitrogen 10 7-18 MG/DL Creatinine 0.82 0.60-1.30 MG/DL Estimat Glomerular Filtration Rate 88 BUN/Creatinine Ratio 12 Glucose Level 84 70-105 MG/DL Calcium Level 9.6 8.5-10.1 MG/DL Corrected Calcium 9.4 8.5-10.1 MG/DL Total Bilirubin 0.4 0.1-1.0 MG/DL Aspartate Amino Transf (AST/SGOT) 16 5-34 U/L Alanine Aminotransferase (ALT/SGPT) 19 0-55 U/L Alkaline Phosphatase 41 40-136 U/L Total Protein 7.6 6.4-8.2 GM/DL Albumin 4.3 3.2-4.5 GM/DL Serum Test, Qualitative NEGATIVE NEGATIVE My Orders Orders - MARLO DRAKE APRN Covid 19 Inhouse Test (04/15/21 15:52) Influenza A And B By Pcr (04/15/21 15:52) Cbc With Automated Diff (04/15/21 16:46) Comprehensive Metabolic Panel (04/15/21 16:46) Ua Culture If Indicated (04/15/21 16:46) Hcg,Qualitative Serum (04/15/21 16:46) Ed Iv/Invasive Line Start (04/15/21 16:46) Lactated Ringers (Lr 1000 Ml Iv Solution (04/15/21 17:00) Ondansetron Injection (Zofran Injectio (04/15/21 17:00) Urine Culture (04/15/21 17:06) Rx-Ondansetron Po (Rx-Zofran Po) (04/15/21 18:21) Medications Given in ED Current Medications Medications Dose Ordered Sig/Jessica Route Start Time Stop Time Status Last Admin Dose Admin Ondansetron HCl 8 mg ONCE ONCE IVP 04/15/21 17:00 04/15/21 17:01 DC 04/15/21 17:24 8 MG Vital Signs/I&O 04/15/21 16:53 Temp 36.8 Pulse 88 Resp 18 B/P (MAP) 112/73 (86) Pulse Ox 97 O2 Delivery Room Air Blood Pressure Mean: 86 Departure Impression Primary Impression: Gastroenteritis Disposition: 01 HOME, SELF-CARE Condition: Stable Departure-Patient Inst. Decision time for Depature: 17:42 Referrals: SELFGELY MD (PCP/Family) Primary Care Physician Patient Instructions: [id number], Colitis, Urinary Tract Infection, Adult (DC), Nausea and Vomiting of (DC) Add. Discharge Instructions: . Increase fluid intake. Drink plenty of fluids. You can use [id number] Imodium All discharge instructions reviewed with patient and/or family. Voiced understanding. Work/School Note: Work Release Form Date Seen in the Emergency Department: Apr 15, 2021 Return to Work: Apr 18, 2021 MARLO DRAKE APRN Apr 15, 2021 17:42
[2021-04-15 17:53] LABS: ALBUMIN 4.3 GM/DL (3.2-4.5)
[2021-04-15 17:54] LABS: POTASSIUM 3.3 MMOL/L (3.6-5.0)
[2021-04-15 17:55] LABS: CALCIUM 9.6 MG/DL (8.5-10.1)
[2021-04-15 17:56] LABS: TOTAL PROTEIN 7.6 GM/DL (6.4-8.2)
[2021-04-15 17:58] LABS: BILIRUBIN,TOTAL 0.4 MG/DL (0.1-1.0)
[2021-04-15 18:00] LABS: CREATININE SERUM 0.82 MG/DL (0.60-1.30)
[2021-04-15] MEDS ORDERED: RX-ONDANSETRON 4 MG ODT (ZOFRAN) PPK #4 PO STA (18:21)
[2021-04-15 19:01] VITALS: BP 112/73
== END 2021-04-15 19:03 | disposition home or self-care (01) ==
LOC: EDUNIT# 15:21 → ER 15:23
DX: K52.9 Noninfective gastroenteritis and colitis, unspecified (principal); Z20.822 Contact with and (suspected) exposure to COVID-19
CPT/HCPCS: 36415; 80053; 81000; 84703; 85025; 87088; 87636